=== PATIENT | female | born 1945 | race Caucasian/White ===

== ENCOUNTER 2017-02-21 19:16 | Emergency (ER) | payer MEDICAID, OTHER ==
[~2017-02-21] VITALS: Ht 160 cm; Wt 92.5 kg
[~2017-02-21 19:16] MED LIST: APIX5TAB PO; CEL250 PO; LEVO200T8 PO; LISI-600 PO; PRAV10TA PO; SIRO0.5T PO; SPIR25TA4 PO
[2017-02-21 19:26] VITALS: BP_SYST 144
--- NOTE | 2017-02-21 19:31 | NUR ---
Pt placed to ER waiting room in stable condition. Family member at side. Urine specimen cup provided.
[2017-02-21 20:14] LABS: BASOPHILS % (AUTO) 0.4 % (0.0-2.0); EOSINOPHILS # (AUTO) 0.1 K/uL (0.0-0.4); EOSINOPHILS % (AUTO) 1.6 % (0.0-4.0); HEMATOCRIT 41.8 % (36-48); HEMOGLOBIN 13.5 g/dL (12.0-16.0); LYMPHOCYTES # (AUTO) 1.4 K/uL (1.0-5.5); LYMPHOCYTES % (AUTO) 19.2 % (20.5-51.5); MEAN CORPUSCULAR HEMOGLOBIN 28 pg (27-31); MEAN CORPUSCULAR HGB CONC 32 % (32-36); MEAN CORPUSCULAR VOLUME 86 fL (79.0-98.0); MONOCYTES # (AUTO) 0.6 K/uL (0.0-1.0); MONOCYTES % (AUTO) 7.5 % (1.7-9.3); NEUTROPHILS # (AUTO) 5.4 K/uL (1.8-7.7); NEUTROPHILS % (AUTO) 71.3 % (40.0-70.0); PLATELET COUNT (AUTO) 197 K/uL (130-430); RED BLOOD CELL COUNT(AUTO) 4.84 MIL/uL (4.2-6.2); RED CELL DISTRIBUTION WIDTH 13.7 % (9.0-15.0); WHITE BLOOD COUNT (AUTO) 7.5 K/uL (4.8-10.8)
[2017-02-21 20:21] LABS: INR 1.1 (0.8-1.2); PROTHROMBIN TIME 11.9 SECS (9.5-12.5)
--- NOTE | 2017-02-21 20:24 | NUR ---
Pt placed to ER bed 03, to janak, report given to KELECHI Good.
--- NOTE | 2017-02-21 20:25 | NUR ---
PT STATES SHE SUDDENLY HAD SHARP ABD PAIN 7/10 IN HER MID ABD, NON-RADIATING AND INTERMITINENT. A/OX4, AFEBRILE. NO SOB OR DISTRESS. SAFETY PRECAUTIONS IN PLACE, WILL CONTINUE TO MONITOR.
--- NOTE | 2017-02-21 20:30 | NUR ---
ER Dr. Gallardo at bedside examining patient.
[2017-02-21 20:31] LABS: ANION GAP 4 (5-15); CALCIUM 9.4 mg/dL (8.4-11.0); CHLORIDE 106 mmol/L (98-107); CREATININE 0.89 mg/dL (0.55-1.30); GLUCOSE 114 mg/dL (70-99); POTASSIUM 3.7 mmol/L (3.5-5.1); SODIUM SERUM 137 mmol/L (136-145); UREA NITROGEN, BLOOD 16 mg/dL (8-21)
[2017-02-21 20:35] LABS: ALANINE AMINOTRANSFERASE 23 U/L (12-78); ALBUMIN 3.6 g/dL (3.4-4.8); AMYLASE 85 U/L (0-100); ASPARTATE AMINOTRANSFERASE 22 U/L (10-37); LIPASE 206 U/L (73-393); TOTAL BILIRUBIN 0.5 mg/dL (0.0-1.0)
[2017-02-21] MEDS ORDERED: IBUPROFEN 800 MG TABLET PO ONE (21:00)
[2017-02-21 22:17] VITALS: BP_SYST 131
--- NOTE | 2017-02-21 22:17 | NUR ---
Patient given written and verbal discharge instructions and verbalizes understanding. ER MD DR. PETERSON discussed with patient the results and treatment provided. Patient in stable condition. ID arm band removed. Rx of TRAMADOL given. Patient educated on pain management and to follow up with PMD. Pain Scale 3/10, PT STATES PAIN IS TOLERABLE, AMBULATED W/ STEADY GAIT. Opportunity for questions provided and answered.
== END 2017-02-21 22:17 | disposition home or self-care (01) ==
LOC: SED 19:16
DX: K42.9 Umbilical hernia without obstruction or gangrene (principal); K43.9 Ventral hernia without obstruction or gangrene; K40.90 Unilateral inguinal hernia, without obstruction or gangrene, not specified as recurrent; E78.5 Hyperlipidemia, unspecified; I10 Essential (primary) hypertension; Z90.710 Acquired absence of both cervix and uterus
CPT/HCPCS: 36415; 80053; 82150-TC; 83605; 83690-TC; 85025; 85610-TC; 85730-TC; 87040-TC; 99285

== ENCOUNTER 2018-11-02 16:36 | Inpatient (IN) | payer OTHER, MEDICAID ==
[~2018-11-02] VITALS: Ht 157.5 cm; Wt 94.8 kg
[~2018-11-02 16:36] MED LIST changes: -SPIR25TA4 PO; +SPIR25TA6 PO
--- NOTE | 2018-11-02 17:30 | NUR ---
ADMISSION NOTE Patient is a direct admit from home, received report from Heriberto HUERAT. Patient is awake, alert and oriented x4, denies any pain/discomfort at this time. Patient is on room air, breathing even and unlabored. IV line started on the right forearm 22 G by Heriberto HUERTA noted with good blood return. Patient oriented to hospital routine, call light, toileting and safety, patient verbalized understanding. Called and spoke with Dr. Jeffrey for admit orders, orders read back and to be entered by RN. Per MD, he come and see the patient and put additional orders. Safety and fall precautions in place, bed low and locked, side rails up x3, call light within reach, will continue to monitor.
[2018-11-02 18:19] LABS: HEMATOCRIT 35.4 % (36-48); HEMOGLOBIN 11.6 g/dL (12.0-16.0); LYMPHOCYTES % (AUTO) 11.3 % (20.5-51.5); MEAN CORPUSCULAR HEMOGLOBIN 28 pg (27-31); MEAN CORPUSCULAR HGB CONC 33 % (32-36); MEAN CORPUSCULAR VOLUME 84 fL (79.0-98.0); MONOCYTES % (AUTO) 11.7 % (1.7-9.3); NEUTROPHILS % (AUTO) 74.7 % (40.0-70.0); PLATELET COUNT (AUTO) 243 K/uL (130-430); RED BLOOD CELL COUNT(AUTO) 4.23 MIL/uL (4.2-6.2); RED CELL DISTRIBUTION WIDTH 15.5 % (9.0-15.0); WHITE BLOOD COUNT (AUTO) 7.1 K/uL (4.8-10.8)
[2018-11-02 18:20] LABS: BASOPHILS % (AUTO) 0.6 % (0.0-2.0); EOSINOPHILS # (AUTO) 0.1 K/uL (0.0-0.4); EOSINOPHILS % (AUTO) 1.7 % (0.0-4.0); LYMPHOCYTES # (AUTO) 0.8 K/uL (1.0-5.5); MONOCYTES # (AUTO) 0.8 K/uL (0.0-1.0); NEUTROPHILS # (AUTO) 5.3 K/uL (1.8-7.7)
[2018-11-02] MEDS ORDERED: ACETAMINOPHEN 325 MG TABLET PO PRN (18:30)
[2018-11-02 18:40] LABS: ALANINE AMINOTRANSFERASE 25 U/L (12-78); ALBUMIN 2.7 g/dL (3.4-4.8); ANION GAP 6 (5-15); ASPARTATE AMINOTRANSFERASE 22 U/L (10-37); CALCIUM 9.2 mg/dL (8.4-11.0); CHLORIDE 104 mmol/L (98-107); CREATININE 0.68 mg/dL (0.55-1.30); GLUCOSE 84 mg/dL (70-99); POTASSIUM 3.7 mmol/L (3.5-5.1); SODIUM SERUM 136 mmol/L (136-145); TOTAL BILIRUBIN 0.5 mg/dL (0.0-1.0); UREA NITROGEN, BLOOD 16 mg/dL (8-21)
--- NOTE | 2018-11-02 18:45 | NUR ---
CLOSING NOTE/DR. JEFFREY AT THE BEDSIDE Dr. Jeffrey seen and examined the patient at the bedside. Patient is awake, no s/s of acute distress. No respiratory distress. Safety and fall precautions in place, call light within reach, will endorse plan of care.
[2018-11-02] MEDS ORDERED: PIPERACILLIN/TAZO 3.375/DEX-IS 50 ML IV ONE (19:00)
--- NOTE | 2018-11-02 19:05 | NUR ---
OPENING NOTES RECEIVED PATIENT IN BED AAO X4. BREATHING UNLABORED ON ROOM AIR. DENIES PAIN AT THIS TIME. PLAN OF CARE REVIEWED WITH PATIENT. PLACED CALL LIGHT WITH IN EASY REACH. BED IN LOWEST LOCKED POSITION WITH ALARM ON.
[2018-11-02] MEDS ORDERED: ONDANSETRON HCL 4 MG/2 ML VIAL IVP PRN (19:30)
--- NOTE | 2018-11-02 19:30 | NUR ---
ATB PATIENT STARTED ON ANTIBIOTIC ZOSYN ORDERED. IV LINE INTACT TO RFA.
[2018-11-02 19:53] VITALS: BP_SYST 116
[2018-11-02] MEDS: VANCOMYCIN HCL 1,000 MG in NS 250 ML IV SCH (20:28)
--- NOTE | 2018-11-02 22:26 | NUR ---
Consultation Paged Reason for Consultation: Abdominal Wall Infection Was consult called: Y Person who was notified: Yudelka Consulting Physician: Dr. Watson Engine Research Engineer Ordering Physician: Dr. Jeffrey
--- NOTE | 2018-11-02 22:43 | NUR ---
Consultation Paged Reason for Consultation: Abdominal Wall Cellulitis and Abscess Was consult called: Y Person who was notified: Candida Consulting Physician: Dr. Spence Double Needle Operator Lockstitch Ordering Physician: Dr. Jeffrey
--- NOTE | 2018-11-02 22:50 | NUR ---
SURGICAL CONSULT SPOKE WITH DR REYES FOR SURGICAL CONSULT. NO NEW ORDERS GIVEN.
[2018-11-03] MEDS: PIPERACILLIN/TAZO 3.375/DEX-IS 50 ML IV SCH ×4 (00:08→17:32)
[2018-11-03 00:25] VITALS: BP_SYST 108
--- NOTE | 2018-11-03 00:43 | NUR ---
ROUNDS PATIENT RESTING IN BED. NO DISTRESS NOTED. CALL LIGHT WITH IN REACH. VITAL SIGNS STABLE. BED ALARM ON.
--- NOTE | 2018-11-03 03:00 | NUR ---
INCONTINENCE PATIENT LINENS CHANGED. INCONTINENCE CARE DONE.
--- NOTE | 2018-11-03 05:26 | NUR ---
ATB PATIENT DUE ANTIBIOTIC INFUSED. IV LINE PATENT/INTACT. DENIES PAIN AT THIS TIME.
--- NOTE | 2018-11-03 06:55 | NUR ---
CLOSING NOTES PATIENT RESTING IN BED. BREATHING UNLABORED. NO DISTRESS NOTED. PATIENT NPO FOR ABDOMINAL CT TODAY. PATIENT REMINDED AND AWARE OF NPO STATUS. PATIENT NEEDS ATTENDED. CALL LIGHT WITH IN EASY REACH. BED IN LOWEST LOCKED POSITION. BED ALARM ON.
--- NOTE | 2018-11-03 07:10 | NUR ---
received report from ally nurse. patient aaox 4. respiration is even and unlabored. lungs bilaterally clear. on npo as per report for CT of abdomen today. vitals signs stable and documented. no pain nor acute distress noted. call lights within reach. instructed to call for assistance. will continue to monitor patients status.
[2018-11-03 08:19] VITALS: BP_SYST 122
--- NOTE | 2018-11-03 08:20 | NUR ---
spoke to the patient and granddaughter will come to bring lists of medications.
--- NOTE | 2018-11-03 09:16 | NUR ---
ct scan of abdomen done.
--- NOTE | 2018-11-03 10:30 | NUR ---
able to eat breakfast, verbalized very hungry. but no pain nor distress noted.
--- NOTE | 2018-11-03 12:28 | NUR ---
awaiting for the family member to come and bring the medication for reconciliation.
--- NOTE | 2018-11-03 12:28 | NUR ---
DR GARCIA SAW AND EVALUATE THE PATIENT.
--- NOTE | 2018-11-03 13:00 | NUR ---
consent signed for ct drain retroperitoneal subcutaneous abscess.
[2018-11-03] MEDS ORDERED: PHEDM120 PO (13:44)
[2018-11-03] MEDS ORDERED: CALC-823 PO (13:44)
[2018-11-03] MEDS ORDERED: CHOL2000 PO (13:44)
[2018-11-03] MEDS ORDERED: MULT-1159 PO (13:44)
[2018-11-03] MEDS ORDERED: OMEG1CAP55 PO (13:44)
[2018-11-03] MEDS ORDERED: ACET325T53 PO (13:44)
[2018-11-03 13:58] VITALS: BP_SYST 102
--- NOTE | 2018-11-03 14:00 | NUR ---
dr ballard evaluated the patient, but no ct drain due to patient took eliquis tablet yesterday, perhaps will do the procedure tomorrow or wednesday.
[2018-11-03 14:44] LABS: INR 1.1 (0.8-1.2); PROTHROMBIN TIME 11.3 SECS (9.5-12.5)
[2018-11-03] MEDS: MICAFUNGIN SODIUM 100 MG in NS 100 ML IV SCH (14:46)
--- NOTE | 2018-11-03 16:08 | NUR ---
patient went to the bathroom. made comfortable. assists on adls.
[2018-11-03] MEDS: HYDROmorphone 2 MG/ML VIAL IVP PRN (16:23)
--- NOTE | 2018-11-03 16:26 | NUR ---
pain meds given
[2018-11-03 16:55] VITALS: BP_SYST 123
--- NOTE | 2018-11-03 17:54 | NUR ---
verbalized feels better. antibiotic due given.
--- NOTE | 2018-11-03 19:15 | NUR ---
OPENING NOTES RECEIVED PATIENT IN BED AAOX4. BREATHING UNLABORED ON ROOM AIR. DENIES PAIN. IV LINE INTACT TO RFA. ASSISTED PATIENT TO BATHROOM AND BACK TO BED. PLACE CALL LIGHT WITH IN REACH. BED IN LOWEST LOCKED POSITION WITH BED ALARM ON.
--- NOTE | 2018-11-03 19:20 | NUR ---
report given to incoming nurse Nicole LORENZ
[2018-11-03] MEDS ORDERED: ACETAMINOPHEN 325 MG TABLET PO SCH (20:00)
[2018-11-03] MEDS ORDERED: PROMETHAZINE-DM 6.25 MG-15 MG/5 ML UDC PO PRN (20:00)
[2018-11-03] MEDS: VANCOMYCIN HCL 1,000 MG in NS 250 ML IV SCH (20:06)
--- NOTE | 2018-11-03 20:06 | NUR ---
ATB PATIENT DUE VANCOMYCIN INFUSED. NEW IV PLACED TO LFA WITH GOOD BLOOD RETURN G#22. PATIENT DENIES PAIN. CALL LIGHT WITH IN REACH.
[2018-11-03 20:25] VITALS: BP_SYST 116
[2018-11-03] MEDS: MYCOPHENOLATE MOFETIL 250 MG CAPSULE PO SCH (21:00)
[2018-11-03] MEDS ORDERED: SIMVASTATIN 10 MG TABLET PO SCH (22:30)
--- NOTE | 2018-11-03 22:40 | NUR ---
MED PASS PATIENT DUE MEDICATION GIVEN. ASSISTED PATIENT WITH BATHROOM USE AND BACK TO BED. BED ALARM ON.
[2018-11-03 23:30] VITALS: BP_SYST 109
[2018-11-04] MEDS: PIPERACILLIN/TAZO 3.375/DEX-IS 50 ML IV SCH ×5 (00:13→23:58)
--- NOTE | 2018-11-04 00:13 | NUR ---
ATB PATIENT DUE ANTIBIOTIC INFUSED. NO DISTRESS NOTED. VITAL SIGNS STABLE. CALL LIGHT WITH IN REACH.
--- NOTE | 2018-11-04 02:50 | NUR ---
BRP ASSISTED PATIENT OOB TO BATHROOM AND BACK TO BED. DENIES PAIN. NO DISTRESS NOTED. CALL LIGHT WITH IN REACH. BED ALARM ON.
[2018-11-04] MEDS: LEVOTHYROXINE SODIUM 0.1 MG TABLET PO SCH (06:12)
--- NOTE | 2018-11-04 06:13 | NUR ---
MED PASS ASSISTED PATIENT TO BATHROOM AND BACK TO BED. DUE MEDICATIONS GIVEN.
--- NOTE | 2018-11-04 06:35 | NUR ---
CLOSING NOTES PATIENT RESTING IN BED. BREATHING UNLABORED ON ROOM AIR. DENIES PAIN. IV ATB INFUSING WITH IV LINE INTACT. PATIENT NEEDS ATTENDED. CALL LIGHT WITH IN REACH. BED IN LOWEST LOCKED POSITION.
--- NOTE | 2018-11-04 07:18 | NUR ---
received report from ally shah rn. patient aaox 4. vitals signs stable. lungs bilaterally clear. abdomen soft but tender to touch and redness noted at the right side. md is aware. has iv access on the left hand #22. call lights within reach.
[2018-11-04 08:04] VITALS: BP_SYST 121
[2018-11-04] MEDS ORDERED: PRAVASTATIN SODIUM 10 MG TABLET (PRAVACHOL) PO SCH (09:00)
[2018-11-04] MEDS: CALCIUM CARBONATE/VITAMIN D3 1 TAB TABLET PO SCH (09:09)
[2018-11-04] MEDS: MYCOPHENOLATE MOFETIL 250 MG CAPSULE PO SCH ×2 (09:09→20:03)
[2018-11-04] MEDS: OMEGA-3/DHA/EPA/FISH OIL 1 GM CAPSULE PO SCH (09:09)
[2018-11-04] MEDS: LISINOPRIL 20 MG TABLET PO SCH (09:10)
[2018-11-04] MEDS: SPIRONOLACTONE 25 MG TABLET (ALDACTONE) PO SCH (09:10)
[2018-11-04] MEDS: MULTIVITS,CA,MINERALS/IRON/FA 1 TABLET PO SCH (09:11)
--- NOTE | 2018-11-04 09:11 | NUR ---
due medication given as ordered. made comfortable.
[2018-11-04 10:29] LABS: INR 1.1 (0.8-1.2)
--- NOTE | 2018-11-04 10:29 | NUR ---
Nutrition Update Aarno Scale 18 noted. Pt admitted for Abd Wall infection. Diet: Reg BMI: 38 RD to follow up per nutrition care standards.
--- NOTE | 2018-11-04 10:44 | NUR ---
resting and watching tv. no pain noted.
[2018-11-04] MEDS ORDERED: ERGO500020 PO (11:12)
--- NOTE | 2018-11-04 11:23 | NUR ---
brought to radiology for ct drain of retroperitoneal subcutaneous abscess.
[2018-11-04] MEDS ORDERED: LIDOCAINE 1%, 20 ML MDV 20 ML ONE (12:13)
--- NOTE | 2018-11-04 12:18 | NUR ---
still on procedure.
--- NOTE | 2018-11-04 12:54 | NUR ---
patient came back from procedure. stable. no complained of pain. has drainage on the right side of abdomen draining yellowish
--- NOTE | 2018-11-04 13:13 | NUR ---
eating lunch at this time. sitting on the chair.
[2018-11-04 13:14] VITALS: BP_SYST 120
--- NOTE | 2018-11-04 15:30 | NUR ---
dr ballard came and evaluate the patient. saw the drainage.
[2018-11-04] MEDS: MICAFUNGIN SODIUM 100 MG in NS 100 ML IV SCH (15:51)
[2018-11-04] MEDS: SIROLIMUS 0.5 MG TABLET PO SCH (16:04)
--- NOTE | 2018-11-04 16:23 | NUR ---
empty rt accordion drain on the stomach about 40cc clear yellow drainage.
[2018-11-04 16:36] VITALS: BP_SYST 120
--- NOTE | 2018-11-04 16:40 | NUR ---
instructed patient how to managed the accordion drain. patient understand
--- NOTE | 2018-11-04 18:00 | NUR ---
assisted to the bathroom.
--- NOTE | 2018-11-04 18:30 | NUR ---
iv antibiotic given
--- NOTE | 2018-11-04 19:00 | NUR ---
seen by dr nath and made orders.
--- NOTE | 2018-11-04 19:20 | NUR ---
endorsed to incoming nurse Brianna LORENZ.
--- NOTE | 2018-11-04 19:43 | NUR ---
Opening Note Patient and bedside report was received from day shift nurse, KELECHI Pinto. Patient is awake, ambulated from bathroom to bed with steady gait. No s/s of acute distress. Plan of care reviewed with patient who is agreeable. Educated pt. regarding drain to right abdomen and maintaining suction. Bed alarm on. Safety measures in place. Call light with patient. Educated pt. to use call light for any needs. Will continue to monitor.
[2018-11-04 20:02] VITALS: BP_SYST 129
[2018-11-04] MEDS: SIMVASTATIN 10 MG TABLET PO SCH (20:03)
[2018-11-04] MEDS: VANCOMYCIN HCL 1,000 MG in NS 250 ML IV SCH (20:04)
--- NOTE | 2018-11-04 20:04 | NUR ---
IV ABX Patient's ordered vancomycin administered as ordered. Educated pt. regarding medication and potential side effects. Denies any other needs at this time. Will continue with plan of care.
[2018-11-04] MEDS ORDERED: SIMVASTATIN 10 MG TABLET PO SCH (21:00)
--- NOTE | 2018-11-05 00:31 | NUR ---
IV ABX Patient's ordered IV antibiotic was administered as ordered. Denies any pain or discomfort at this time. Safety and fall precautions are in place. Bed alarm on. Call light with patient. Encouraged pt. to use call light for any needs. Will continue to monitor.
[2018-11-05 01:00] VITALS: BP_SYST 109
--- NOTE | 2018-11-05 03:43 | NUR ---
RESTING Patient is resting in bed with eyes closed. No s/s of acute distress. Safety and fall precautions in place. Bed alarm on. Call light with patient. Will continue with plan of care.
--- NOTE | 2018-11-05 04:21 | NUR ---
CALLED LAB RE: "UNCOLLECTED" ORDERS/SPECIMEN WAS SENT OUT Spoke to Manuel from lab who stated the patient's specimen for fungus mycology order was sent out 11/04/18. Charge nurse also made aware.
[2018-11-05] MEDS: LEVOTHYROXINE SODIUM 0.1 MG TABLET PO SCH (05:58)
[2018-11-05] MEDS: PIPERACILLIN/TAZO 3.375/DEX-IS 50 ML IV SCH ×4 (05:59→23:21)
--- NOTE | 2018-11-05 06:24 | NUR ---
EMPTIED TARI-CLOSE DRAIN Emptied 150 mls of henriquez drainage from tari-close drainage bag.
--- NOTE | 2018-11-05 06:25 | NUR ---
CLOSING NOTES All needs met throughout shift. Denies any pain or discomfort at this time. Safety precautions were maintained. SBAR report and care will be given to oncoming day shift nurse.
--- NOTE | 2018-11-05 07:10 | NUR ---
received report from ally Reed RN. patient asleep. vital signs stable. lungs bilaterally clear. no pain or acute distress noted. call lights within reach. has saline lock on the left hand #22. bed in low position.
[2018-11-05 07:28] LABS: INR 1.1 (0.8-1.2); PROTHROMBIN TIME 10.9 SECS (9.5-12.5)
--- NOTE | 2018-11-05 08:00 | NUR ---
assisted to the bathroom. explained how to use the christine close drain. still yellowish drainage clear. about 10 cc
[2018-11-05] MEDS: MYCOPHENOLATE MOFETIL 250 MG CAPSULE PO SCH ×2 (08:54→20:07)
[2018-11-05] MEDS: HYDROmorphone 2 MG/ML VIAL IVP PRN (08:54)
[2018-11-05] MEDS: CALCIUM CARBONATE/VITAMIN D3 1 TAB TABLET PO SCH (08:55)
[2018-11-05] MEDS: SPIRONOLACTONE 25 MG TABLET (ALDACTONE) PO SCH (08:55)
[2018-11-05] MEDS: OMEGA-3/DHA/EPA/FISH OIL 1 GM CAPSULE PO SCH (08:55)
[2018-11-05] MEDS: LISINOPRIL 20 MG TABLET PO SCH (08:55)
[2018-11-05] MEDS: MULTIVITS,CA,MINERALS/IRON/FA 1 TABLET PO SCH (08:55)
--- NOTE | 2018-11-05 08:55 | NUR ---
fungus culture for afb and norcardia test sent to lab x 2.
[2018-11-05] MEDS: SIROLIMUS 0.5 MG TABLET PO SCH (08:56)
[2018-11-05 09:01] VITALS: BP_SYST 117
--- NOTE | 2018-11-05 09:03 | NUR ---
dilaudid 1 mg given and due medication.
--- NOTE | 2018-11-05 10:00 | NUR ---
assists to the bathroom. and adls.
--- NOTE | 2018-11-05 11:30 | NUR ---
picc line nurse started insertion. successful on the right upper picc line. 2 lumen.
--- NOTE | 2018-11-05 12:00 | NUR ---
chest x ray done. placement is good okay to use.
[2018-11-05 12:02] VITALS: BP_SYST 129
--- NOTE | 2018-11-05 12:53 | NUR ---
antibiotic given iv.
--- NOTE | 2018-11-05 14:00 | NUR ---
sent specimen from abdominal drain for aerobic culture and fungus culture
[2018-11-05] MEDS: MICAFUNGIN SODIUM 100 MG in NS 100 ML IV SCH (15:30)
--- NOTE | 2018-11-05 15:31 | NUR ---
ANTIBIOTIC IV GIVEN.
--- NOTE | 2018-11-05 15:36 | NUR ---
ASSIST TO THE BED. NO PAIN NOTED.
[2018-11-05 16:02] VITALS: BP_SYST 123
--- NOTE | 2018-11-05 16:08 | NUR ---
dr Payne came covering for Dr nath made orders.
--- NOTE | 2018-11-05 17:23 | NUR ---
resting for a while and watching tv
--- NOTE | 2018-11-05 17:53 | NUR ---
eating dinner good. antibiotic given at this time. stable
--- NOTE | 2018-11-05 18:23 | NUR ---
watching tv no pain noted.
--- NOTE | 2018-11-05 19:05 | NUR ---
Initial Assessment Received patient awake alert oriented x4,resting in bed. No s/s of any distress noted. Clear dressing noted to mid abdomen with accordion drain noted with about 20cc of serosanguinous drainage on the bag. UBALDO picc noted to no infiltrate and with good blood return. Discussed plan of care with patient and verbalized understanding. Will cont to monitor.
--- NOTE | 2018-11-05 19:05 | NUR ---
Rounds Patient is resting in bed with eyes close at this time. No s/s of any distress noted. Call light in reach, will cont to monitor. Addendum: 11/06/18 at 0007 by Damion Spence RN correction with time 210
--- NOTE | 2018-11-05 19:20 | NUR ---
endorsed to incoming nurse Bruno RN
--- NOTE | 2018-11-05 20:00 | NUR ---
Dr Spence at bedside Dr Spence checking on patient at this time.
[2018-11-05] MEDS: SIMVASTATIN 10 MG TABLET PO SCH (20:06)
[2018-11-05] MEDS: VANCOMYCIN HCL 1,500 MG in NS 250 ML IV SCH (20:11)
--- NOTE | 2018-11-05 23:05 | NUR ---
Rounds Patient is resting comfortably in bed. Refused any assistance at this time. Call light in reach, will cont to monitor.
[2018-11-06 00:04] VITALS: BP_SYST 115
--- NOTE | 2018-11-06 01:05 | NUR ---
Rounds Assisted patient with zheng care. No s/s of any distress noted. Call light in reach, will cont to monitor.
--- NOTE | 2018-11-06 03:05 | NUR ---
Rounds Kareen care rendered. Patient is becoming incontinent. Call light in reach, will cont to monitor.
[2018-11-06] MEDS: PIPERACILLIN/TAZO 3.375/DEX-IS 50 ML IV SCH ×3 (05:56→18:18)
[2018-11-06] MEDS: LEVOTHYROXINE SODIUM 0.1 MG TABLET PO SCH (05:57)
--- NOTE | 2018-11-06 06:54 | NUR ---
Final Notes Patient is resting comfortably in bed at this time. No c/o pain and no s/s of any distress noted. All needs met and anticipated by noc nurses. Call light in reach, side rails up x3 and bed alarm on for safety. Will endorse care to incoming nurse.
[2018-11-06 07:07] LABS: BASOPHILS % (AUTO) 0.6 % (0.0-2.0); EOSINOPHILS # (AUTO) 0.3 K/uL (0.0-0.4); EOSINOPHILS % (AUTO) 5.7 % (0.0-4.0); HEMATOCRIT 33.7 % (36-48); HEMOGLOBIN 11.1 g/dL (12.0-16.0); LYMPHOCYTES % (AUTO) 15.9 % (20.5-51.5); MEAN CORPUSCULAR HEMOGLOBIN 28 pg (27-31); MEAN CORPUSCULAR HGB CONC 33 % (32-36); MEAN CORPUSCULAR VOLUME 84 fL (79.0-98.0); MONOCYTES # (AUTO) 0.4 K/uL (0.0-1.0); MONOCYTES % (AUTO) 7.2 % (1.7-9.3); NEUTROPHILS # (AUTO) 4.4 K/uL (1.8-7.7); NEUTROPHILS % (AUTO) 70.6 % (40.0-70.0); PLATELET COUNT (AUTO) 278 K/uL (130-430); RED BLOOD CELL COUNT(AUTO) 4.02 MIL/uL (4.2-6.2); RED CELL DISTRIBUTION WIDTH 14.9 % (9.0-15.0); WHITE BLOOD COUNT (AUTO) 6.1 K/uL (4.8-10.8)
[2018-11-06 07:14] LABS: ALANINE AMINOTRANSFERASE 18 U/L (12-78); ALBUMIN 2.4 g/dL (3.4-4.8); ANION GAP 5 (5-15); ASPARTATE AMINOTRANSFERASE 17 U/L (10-37); CHLORIDE 106 mmol/L (98-107); CREATININE 0.73 mg/dL (0.55-1.30); GLUCOSE 85 mg/dL (70-99); SODIUM SERUM 139 mmol/L (136-145); TOTAL BILIRUBIN 0.3 mg/dL (0.0-1.0); UREA NITROGEN, BLOOD 13 mg/dL (8-21)
--- NOTE | 2018-11-06 08:00 | NUR ---
OPENING NOTES PATIENT RECEIVED RESTING IN BED A&O X4, PATIENT DENIES ANY ACUTE DISTRESS OR PAIN AT THIS TIME, BREATHING IS EVEN AND UNLABORED ON ROOM AIR, EDUCATED PATIENT ON PLAN OF CARE AND CALL LIGHT SYSTEM, WILL CONTINUE TO MONITOR, SAFETY PRECAUTIONS IN PLACE, BED ALARM ON, CALL LIGHT WITHIN REACH.
[2018-11-06 08:11] VITALS: BP_SYST 123
[2018-11-06] MEDS: SPIRONOLACTONE 25 MG TABLET (ALDACTONE) PO SCH (08:56)
[2018-11-06] MEDS: MYCOPHENOLATE MOFETIL 250 MG CAPSULE PO SCH ×2 (08:57→20:33)
[2018-11-06] MEDS: MULTIVITS,CA,MINERALS/IRON/FA 1 TABLET PO SCH (08:57)
[2018-11-06] MEDS: LISINOPRIL 20 MG TABLET PO SCH (08:57)
[2018-11-06] MEDS: OMEGA-3/DHA/EPA/FISH OIL 1 GM CAPSULE PO SCH (08:57)
[2018-11-06] MEDS: CALCIUM CARBONATE/VITAMIN D3 1 TAB TABLET PO SCH (08:57)
[2018-11-06] MEDS: SIROLIMUS 0.5 MG TABLET PO SCH (08:58)
--- NOTE | 2018-11-06 10:35 | NUR ---
NOTES PATIENT IS RESTING IN BED A&O X4, PATIENT DENIES ANY ACUTE DISTRESS OR PAIN AT THIS TIME, BREATHING IS EVEN AND UNLABORED ON ROOM AIR, ASSISTED PATIENT TO BEDSIDE COMMODE, PATIENT TOLERATED WELL, WILL CONTINUE TO MONITOR, SAFETY PRECAUTIONS IN PLACE, CALL LIGHT WITHIN REACH.
[2018-11-06 11:09] VITALS: BP_SYST 116
--- NOTE | 2018-11-06 12:40 | NUR ---
NOTES PATIENT IS RESTING IN BED EATING LUNCH AT THIS TIME, PATIENT DENIES ANY ACUTE DISTRESS OR PAIN AT THIS TIME, BREATHING IS EVEN AND UNLABORED, WILL CONTINUE TO MONITOR, SAFETY PRECAUTIONS IN PLACE, CALL LIGHT WITHIN REACH.
[2018-11-06] MEDS: MICAFUNGIN SODIUM 100 MG in NS 100 ML IV SCH (12:57)
--- NOTE | 2018-11-06 14:57 | NUR ---
NOTES PATIENT IS RESTING IN BED, IVF INFUSING WELL WITH NO SIGNS OF INFILTRATION, PATIENT DENIES ANY ACUTE DISTRESS OR PAIN AT THIS TIME, BREATHING IS EVEN AND UNLABORED, WILL CONTINUE TO MONITOR, SAFETY PRECAUTIONS IN PLACE, CALL LIGHT WITHIN REACH.
[2018-11-06 15:06] VITALS: BP_SYST 110
--- NOTE | 2018-11-06 16:37 | NUR ---
NOTES PATIENT IS RESTING IN BED WATCHING TV, PATIENT DENIES ANY ACUTE DISTRESS OR PAIN AT THIS TIME, BREATHING IS EVEN AND UNLABORED, WILL CONTINUE TO MONITOR, SAFETY PRECAUTIONS IN PLACE, CALL LIGHT WITHIN REACH.
--- NOTE | 2018-11-06 18:44 | NUR ---
CLOSING NOTE PATIENT IS RESTING IN BED A&O X4, PATIENT DENIES ANY ACUTE DISTRESS OR PAIN AT THIS TIME, PATIENT TOLERATED DINNER WELL WITH NO NAUSEA OR VOMITING, BREATHING IS EVEN AND UNLABORED, IVF INFUSING WELL WITH NO SIGNS OF INFILTRATION, ALL NEEDS WERE MET THROUGHOUT SHIFT, WILL ENDORSE REPORT TO ONCOMING NURSE, SAFETY PRECAUTIONS IN PLACE, CALL LIGHT WITHIN REACH.
--- NOTE | 2018-11-06 19:57 | NUR ---
OPENING NOTES Pt and endorsement received from day shift nurse. Pt is AAOx4, lying in bed. No complains of pain or discomfort. No signs of acute distress or SOB noted. Encouraged to use call light when needed. Safety precautions in place with 3 side rails up, bed alarm on refused and was educated on benefits of alarm, pt verbalizes understanding. Bed locked and at lowest position. Call light with pt. Will continue to monitor.
[2018-11-06 20:31] VITALS: BP_SYST 117
[2018-11-06] MEDS: SIMVASTATIN 10 MG TABLET PO SCH (20:33)
[2018-11-06] MEDS: VANCOMYCIN HCL 1,500 MG in NS 250 ML IV SCH (20:35)
--- NOTE | 2018-11-06 23:20 | NUR ---
RESTING Pt is resting in bed with both eyes closed. With visible chest rise and fall with unlabored breathing noted. No complains of pain at this time and no signs of acute distress or SOB noted. Call light with pt, bed locked and at lowest level. Will continue to monitor.
[2018-11-07] VITALS: BP_SYST 116
[2018-11-07] MEDS: PIPERACILLIN/TAZO 3.375/DEX-IS 50 ML IV SCH ×2 (01:35→05:50)
--- NOTE | 2018-11-07 02:45 | NUR ---
RESTING Pt is resting in bed with both eyes closed. With visible chest rise and fall with unlabored breathing noted. No complains of pain or discomfort. No signs of acute distress or SOB noted. Call light with pt, bed locked and at lowest level. Will continue to monitor.
--- NOTE | 2018-11-07 04:37 | NUR ---
RESTING Pt is resting in bed with both eyes closed. With visible chest rise and fall with unlabored breathing noted. No signs of acute distress or SOB noted. Call light with pt, bed locked and at lowest level. Will continue to monitor.
[2018-11-07] MEDS: LEVOTHYROXINE SODIUM 0.1 MG TABLET PO SCH (06:08)
--- NOTE | 2018-11-07 06:40 | NUR ---
CLOSING Pt is resting in bed with both eyes closed. With visible chest rise and fall with unlabored breathing noted. No complains of pain at this time. No signs of acute distress noted. All needs attended throughout the shift. Safety precautions in place with 3 side rails up, bed locked and at lowest position. Call light with pt. Will endorse to day shift nurse.
--- NOTE | 2018-11-07 07:41 | NUR ---
rn rounding report was endorsed by night nurse.Patient is awake and sitting in bed.no signs of any distress,breathing is equal and non labored. Patient educated quality control director light for assistance. Call light is with her. Patient has no other needs at this time. will continue to monitor
[2018-11-07 08:01] VITALS: BP_SYST 128
[2018-11-07] MEDS ORDERED: [UNRECOGNIZED DRUG - OTHER] PO SCH (09:00)
[2018-11-07] MEDS ORDERED: ERGOCALCIFEROL PO SCH (09:00)
[2018-11-07] MEDS: SIROLIMUS 0.5 MG TABLET PO SCH (09:30)
[2018-11-07] MEDS: OMEGA-3/DHA/EPA/FISH OIL 1 GM CAPSULE PO SCH (09:31)
[2018-11-07] MEDS: MULTIVITS,CA,MINERALS/IRON/FA 1 TABLET PO SCH (09:32)
[2018-11-07] MEDS: MYCOPHENOLATE MOFETIL 250 MG CAPSULE PO SCH ×2 (09:32→20:58)
[2018-11-07] MEDS: SPIRONOLACTONE 25 MG TABLET (ALDACTONE) PO SCH (09:33)
[2018-11-07] MEDS: LISINOPRIL 20 MG TABLET PO SCH (09:33)
[2018-11-07] MEDS: CALCIUM CARBONATE/VITAMIN D3 1 TAB TABLET PO SCH (09:38)
--- NOTE | 2018-11-07 09:40 | NUR ---
medication Patients scheduled medication given per order. Patient is stable, no complaints of pain at this time. Patient educated it solutions architect light for assistance. Call light is with her. Patient has no other needs at this time. will continue to monitor.
[2018-11-07 11:33] VITALS: BP_SYST 108
[2018-11-07] MEDS: VANCOMYCIN HCL 1 GM/NS PREMIX 250 ML IV SCH (12:46)
--- NOTE | 2018-11-07 12:59 | NUR ---
medication Patients scheduled medication given per order. Patient shows no signs of any distress, breathing is equal and non labored. Patient has all safety precautions in place. Call light is with patient. no other needs at this time. Call light is with her . will continue to monitor.
--- NOTE | 2018-11-07 15:30 | NUR ---
rn rounding Patient is awake and alert, sitting in bed on the telephone. Patient shows no signs of any distress, breathing is equal and non labored. Patient has all safety precautions in place. Call light is with her. No other needs at this time will continue to monitor.
[2018-11-07 15:44] VITALS: BP_SYST 116
--- NOTE | 2018-11-07 18:50 | NUR ---
rn closing note Report to be endorsed to oncoming night nurse at bed side. Patient is awake and alert no signs of any distress, breathing is equal and non labored. Patient is sitting in bed, watching tv. Patient has no complaints at this time. patient is stable will continue to monitor.
--- NOTE | 2018-11-07 19:32 | NUR ---
OPENING NOTES Pt and endorsement received from day shift nurse. Pt is AAOx4, sitting on the bedside. No complains of pain or discomfort at this time. No signs of acute distress or SOB noted. Safety precautions in place with 3 side rails up, bed locked and at lowest position. Pt refused bed alarm and was educated on risks and benefits of alarm, pt verbalizes understanding. Call light with pt. Will continue to monitor.
[2018-11-07 20:56] VITALS: BP_SYST 129
[2018-11-07] MEDS: DOXYCYCLINE HYCLATE 100 MG CAPSULE PO SCH (20:58)
[2018-11-07] MEDS: SIMVASTATIN 10 MG TABLET PO SCH (20:58)
--- NOTE | 2018-11-07 23:10 | NUR ---
RESTING Pt is resting in bed with both eyes closed. With visible chest rise and fall with unlabored breathing noted. No complains of pain or discomfort at this time. No signs of acute distress or SOB noted. Safety precautions in place and call light with pt. Will continue to monitor.
[2018-11-08 00:20] VITALS: BP_SYST 112
--- NOTE | 2018-11-08 01:43 | NUR ---
RESTING Pt is resting in bed with both eyes closed. With visible chest rise and fall with unlabored breathing noted. IVPB patent and infusing well. No signs of acute distress or SOB noted. Call light with pt, bed locked and at lowest position. Will continue to monitor.
--- NOTE | 2018-11-08 03:04 | NUR ---
RESTING Pt is resting in bed with both eyes closed. With visible chest rise and fall with unlabored breathing noted. No complains of pain or discomfort and no signs of acute distress or SOB noted. Call light with pt, bed locked and at lowest position. Will continue to monitor.
--- NOTE | 2018-11-08 05:40 | NUR ---
CLOSING NOTES Pt is resting in bed with both eyes closed. With visible chest rise and fall with unlabored breathing noted. No complains of pain or discomfort at this time. No signs of acute distress or SOB noted. All needs attended throughout the shift. Safety precautions maintained with 3 side rails up, bed alarm on, locked and at lowest position. Call light with pt. Will continue to monitor and will endorse to day shift nurse.
[2018-11-08] MEDS: LEVOTHYROXINE SODIUM 0.1 MG TABLET PO SCH (06:00)
[2018-11-08 07:53] LABS: ANION GAP 5 (5-15); CALCIUM 8.9 mg/dL (8.4-11.0); CHLORIDE 107 mmol/L (98-107); CREATININE 0.77 mg/dL (0.55-1.30); GLUCOSE 87 mg/dL (70-99); POTASSIUM 4.4 mmol/L (3.5-5.1); SODIUM SERUM 141 mmol/L (136-145); UREA NITROGEN, BLOOD 16 mg/dL (8-21)
[2018-11-08 08:00] VITALS: BP_SYST 129
--- NOTE | 2018-11-08 08:05 | NUR ---
Opening notes, received pt in bed, pt is aaox4, no c/o pain. iv intact and patent. pt just get up to bs commode. safety precaution in place. call light in reach. will cont to monitor.
[2018-11-08 08:11] LABS: BASOPHILS % (AUTO) 0.4 % (0.0-2.0); EOSINOPHILS # (AUTO) 0.3 K/uL (0.0-0.4); EOSINOPHILS % (AUTO) 4.5 % (0.0-4.0); HEMATOCRIT 35.9 % (36-48); HEMOGLOBIN 11.5 g/dL (12.0-16.0); LYMPHOCYTES # (AUTO) 1.1 K/uL (1.0-5.5); MEAN CORPUSCULAR HEMOGLOBIN 27 pg (27-31); MEAN CORPUSCULAR HGB CONC 32 % (32-36); MEAN CORPUSCULAR VOLUME 84 fL (79.0-98.0); MONOCYTES # (AUTO) 0.6 K/uL (0.0-1.0); MONOCYTES % (AUTO) 9.9 % (1.7-9.3); NEUTROPHILS # (AUTO) 4.5 K/uL (1.8-7.7); NEUTROPHILS % (AUTO) 68.2 % (40.0-70.0); PLATELET COUNT (AUTO) 277 K/uL (130-430); RED BLOOD CELL COUNT(AUTO) 4.28 MIL/uL (4.2-6.2); RED CELL DISTRIBUTION WIDTH 14.5 % (9.0-15.0); WHITE BLOOD COUNT (AUTO) 6.5 K/uL (4.8-10.8)
[2018-11-08] MEDS: SIROLIMUS 0.5 MG TABLET PO SCH (08:34)
[2018-11-08] MEDS: MYCOPHENOLATE MOFETIL 250 MG CAPSULE PO SCH ×2 (08:35→20:50)
[2018-11-08] MEDS: DOXYCYCLINE HYCLATE 100 MG CAPSULE PO SCH ×2 (08:35→20:50)
[2018-11-08] MEDS: MULTIVITS,CA,MINERALS/IRON/FA 1 TABLET PO SCH (08:35)
[2018-11-08] MEDS: OMEGA-3/DHA/EPA/FISH OIL 1 GM CAPSULE PO SCH (08:35)
[2018-11-08] MEDS: LISINOPRIL 20 MG TABLET PO SCH (08:36)
[2018-11-08] MEDS: SPIRONOLACTONE 25 MG TABLET (ALDACTONE) PO SCH (08:36)
[2018-11-08] MEDS: CALCIUM CARBONATE/VITAMIN D3 1 TAB TABLET PO SCH (08:36)
--- NOTE | 2018-11-08 12:15 | NUR ---
pt ambulating to the bathroom with fww. pt appears stable. no c/o pain. no sob, will cont to monitor.
[2018-11-08 13:15] VITALS: BP_SYST 111
[2018-11-08] MEDS: VANCOMYCIN HCL 1 GM/NS PREMIX 250 ML IV SCH ×2 (13:34)
--- NOTE | 2018-11-08 14:55 | NUR ---
Dietitian Recommendations * Continue diet as prescribed. Please refer to Nutrition Assessment for details. WILBERT MARQUES Co-signed NILTON SANDERS Signed: 11/08/18 at 1456 by Verito ATKINS <Co-Signature Required> Co-Signed: 11/08/18 at [address]
[2018-11-08 15:37] VITALS: BP_SYST 142
--- NOTE | 2018-11-08 18:33 | NUR ---
CLOSING NOTES, PT HAS BEEN STABLE, NO C/O OF PAIN, NO SOB NO RESP DISTRESS NOTED. IV ANTIBIOTICS GIVEN VIA R. U. ARM PICC, IT WAS INTACT AND PATENT. WILL ENDORSE TO NIGHT RN.
--- NOTE | 2018-11-08 19:14 | NUR ---
OPENING NOTES Pt and endorsement received from day shift nurse. Pt is AAOx4, lying in bed. No complains of pain at this time. No signs of acute distress or SOB noted. Encouraged to use call light when needed. Safety precautions in place with 3 side rails up, bed alarm on, locked and at lowest position. Call light with pt. Will continue to monitor.
--- NOTE | 2018-11-08 19:30 | NUR ---
SEEN AND EXAMINED BY DR. VILLANUEVA
[2018-11-08 20:46] VITALS: BP_SYST 124
[2018-11-08] MEDS: SIMVASTATIN 10 MG TABLET PO SCH (20:50)
--- NOTE | 2018-11-08 23:00 | NUR ---
RESTING Pt is resting in bed with both eyes closed. With visible chest rise and fall with unlabored breathing noted. No signs of acute distress or SOB noted. Safety precautions in place and call light with pt. Will continue to monitor.
[2018-11-09 00:25] VITALS: BP_SYST 116
[2018-11-09] MEDS: VANCOMYCIN HCL 1 GM/NS PREMIX 250 ML IV SCH (00:37)
--- NOTE | 2018-11-09 02:15 | NUR ---
RESTING Pt is resting in bed with both eyes closed. With visible chest rise and fall with unlabored breathing noted. No complains of pain or discomfort. No signs of acute distress or SOB noted. Safety precautions in place and call light with pt. Will continue to monitor.
--- NOTE | 2018-11-09 05:17 | NUR ---
CLOSING NOTES Pt is resting in bed with both eyes closed. With visible chest rise and fall with unlabored breathing noted. No complains of pain or discomfort. No signs of acute distress or SOB noted. All needs attended throughout the shift. Safety precautions maintained with 3 side rails up, bed alarm on, locked and at lowest position. Call light with pt. Will continue to monitor until the end of shift and will endorse to day shift nurse.
[2018-11-09] MEDS: LEVOTHYROXINE SODIUM 0.1 MG TABLET PO SCH (06:00)
--- NOTE | 2018-11-09 07:30 | NUR ---
OPENING NOTE patient is resting in bed, A&Ox4, assessment completed, patient denies any pain and nausea at this time, educated call center consultant light system and plan of care, patient verbalized understanding, no other needs at this time, fall and safety precautions in place, PICC line clean and intact, drain intact.
[2018-11-09 08:13] VITALS: BP_SYST 117
[2018-11-09] MEDS: MULTIVITS,CA,MINERALS/IRON/FA 1 TABLET PO SCH (08:16)
[2018-11-09] MEDS: CALCIUM CARBONATE/VITAMIN D3 1 TAB TABLET PO SCH (08:16)
[2018-11-09] MEDS: DOXYCYCLINE HYCLATE 100 MG CAPSULE PO SCH (08:16)
[2018-11-09] MEDS: MYCOPHENOLATE MOFETIL 250 MG CAPSULE PO SCH (08:16)
[2018-11-09] MEDS: OMEGA-3/DHA/EPA/FISH OIL 1 GM CAPSULE PO SCH (08:16)
--- NOTE | 2018-11-09 08:16 | NUR ---
scheduled medications patient is resting in bed, A&Ox4, assessment completed, patient denies any pain and nausea at this time, educated vmware consultant light system and plan of care, patient verbalized understanding, no other needs at this time, fall and safety precautions in place, PICC line clean and intact, drain intact. Addendum: 11/09/18 at 1102 by Kenia Toro RN IGNORE THIS NOTE
--- NOTE | 2018-11-09 08:16 | NUR ---
scheduled medications patient is resting in bed, educated on medication uses and side effects, patient refused aldactone and lisinopril stating that she hasn't taken blood pressure medications since July per MD order and states that her current blood pressure is well enough that she does not feel that she needs them, patient verbalized understanding and tolerated well, no other needs at this time, fall and safety precautions in place, PICC line clean and intact, drain intact.
[2018-11-09] MEDS: SIROLIMUS 0.5 MG TABLET PO SCH (08:18)
[2018-11-09] MEDS: LISINOPRIL 20 MG TABLET PO SCH (09:00)
[2018-11-09] MEDS: SPIRONOLACTONE 25 MG TABLET (ALDACTONE) PO SCH (09:00)
--- NOTE | 2018-11-09 10:20 | NUR ---
rounds patient is resting in bed watching tv, patient denies any pain and nausea at this time, no other needs at this time, fall and safety precautions in place, PICC line clean and intact, drain intact.
--- NOTE | 2018-11-09 11:17 | NUR ---
Dr Jeffrey rounds saw patient in room, okayed for discharge with home health.
[2018-11-09 11:41] VITALS: BP_SYST 118
[2018-11-09 12:24] VITALS: BP_SYST 118
--- NOTE | 2018-11-09 13:33 | NUR ---
DC Planning: Faxed referral package and dc order for pt. to go home with [facility] for IV Vanco x 2weeks , fax# [phone], tel # [phone] navin Nedra. Cm to f/u for acceptance and scheduling visit. Addendum: 11/09/18 at 1641 by Denisa Ryan RN Confirmed with Annamarie at [facility] , the pt is accepted for home care , iv abx infusion x 2 weeks. The pt is scheduled to tomorrow visit and started the ABX first of 14 doses. -- Kenia LORENZ aware.
[2018-11-09 16:02] VITALS: BP_SYST 141
[2018-11-09] MEDS ORDERED: DOXY100T2 PO (16:42)
--- NOTE | 2018-11-09 17:25 | NUR ---
D/C Patient Patient given medication reconciliation form and D/C instructions. Exit Care provided. Patient verbalized understanding. MD discussed with patient the results and treatment provided. Ambulatory with steady gait for discharge to home. Patient in stable condition, ID band removed. PICC Line and drainage bag left with patient per MD order, no active bleeding. Rx of DOXYCYCLINE given. Patient educated on pain management. All belongings sent with patient.
[2018-11-09] MEDS ORDERED: VANCOMYCIN HCL 1,750 MG in NS 500 ML IV SCH (21:00)
--- NOTE | 2018-11-10 15:05 | NUR ---
Discharge Follow Up Phone Call [employer] TECHNICIAN phoned patient, . Patient stated she is doing fine. She will fill her oral antibiotic prescription this evening when her niece returns home. She knows to start it today. She is awaiting the delivery of the IV antibiotics now and the [facility] health nurse will come this evening. Patient has been in contact with [facility] today and is resuming services, so is comfortable following up with them. Patient has a follow up appointment with PCP, Dr Jeffrey, next week. She will call Dr Jackman's office in the am tomorrow to make an appointment. The office was closed this afternoon. C[employer] TECHNICIAN offered to assist, but patient prefers to make her own appointments. No other questions or concerns.
== END 2018-11-09 17:25 | disposition home health service (06) | DRG 862 ==
LOC: SMU 17:05 → UNDOADMIN 17:05 → SMU 17:13
PROVIDERS: ADMIT Family Medicine; ATTEND Family Medicine
PROC: 0W9F30Z Drainage of Abdominal Wall with Drainage Device, Percutaneous Approach (ICD-10-PCS; 2018-11-04)
PROC: 02HV33Z Insertion of Infusion Device into Superior Vena Cava, Percutaneous Approach (ICD-10-PCS; principal; 2018-11-05)
PROC: B548ZZA Ultrasonography of Superior Vena Cava, Guidance (ICD-10-PCS; 2018-11-05)
DX: T81.41XA Infection following a procedure, superficial incisional surgical site, initial encounter (principal); E43 Unspecified severe protein-calorie malnutrition; L02.211 Cutaneous abscess of abdominal wall; D68.59 Other primary thrombophilia; L76.34 Postprocedural seroma of skin and subcutaneous tissue following other procedure; L03.311 Cellulitis of abdominal wall; Z94.4 Liver transplant status; E66.9 Obesity, unspecified; I48.2 Chronic atrial fibrillation; I10 Essential (primary) hypertension; E03.9 Hypothyroidism, unspecified; Y83.8 Other surgical procedures as the cause of abnormal reaction of the patient, or of later complication, without mention of misadventure at the time of the procedure; Y92.89 Other specified places as the place of occurrence of the external cause; Z68.38 Body mass index [BMI] 38.0-38.9, adult; Z79.01 Long term (current) use of anticoagulants; Z79.899 Other long term (current) drug therapy
CPT/HCPCS: 36415; 71045; 80048; 80053; 80202-TC; 85025; 85610-TC; 85651-TC; 85730-TC; 86635; 87040-TC; 87070-TC; 87081; 87101; 87116; C1729; C1751; C1769; J1170; J2001; J2248; J2543; J3370; J7040; J7050; J7517